=== PATIENT | male | born 1955 | race Caucasian/White ===

== ENCOUNTER 2019-11-01 13:41 | Emergency (ER) | payer MEDICAID ==
--- NOTE | 2019-11-01 14:06 | EDM.PDOC ---
ED HPI GENERAL MEDICAL PROBLEM - General Chief Complaint: ENT Problem Stated Complaint: NOSE BLEED Time Seen by Provider: 11/01/19 14:05 Source of Information: Reports: Patient History Limitations: Reports: No Limitations - History of Present Illness INITIAL COMMENTS - FREE TEXT/NARRATIVE: 64-year-old male with onset of left-sided nosebleed on of this last week. He states it lasted for a brief period of time and then resolved. He had no more problems until the following morning when he did have another nosebleed from the left nostril that once again stopped after a short period of time. He had no problems yesterday and then on today at 7 AM after awakening at 6:30 AM, he developed left-sided nosebleed and they could not get it to stop. That they did not apply direct pressure to the area they applied pressure to the bony part of the nose and held his head up when the patient arrived here apparently was still having some nosebleed and the nursing staff had the patient apply direct pressure with a gauze and by the time I get into the room his nose is not bleeding anymore. He is on no anticoagulation other than an aspirin daily. He has had no trauma to the area. He has had no weakness or dizziness. No headaches. No nausea or vomiting. The pain at present. He rates his pain as a 0/ 10. There are no other associated signs or symptoms. There are no other modifying factors. 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 The patient and his are comfortable with this arrangement and I feel that the history that I obtained from the patient and the information that I disseminated to the and the patient was well understood. 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 Social & Family History - Tobacco Use Smoking Status *Q: Former Smoker (Nonsmoker for the past 1-1/2 years.) - Alcohol Use Alcohol Use History: No - Living Situation & Occupation Living situation: Reports: Occupation: Disabled Social History Comment: He is here with his ED ROS ENT - Review of Systems Review Of Systems: See Below Constitutional: Reports: No Symptoms HEENT: Reports: Nosebleed (Left nostril) Respiratory: Reports: No Symptoms Cardiovascular: Reports: No Symptoms GI/Abdominal: Reports: No Symptoms : Reports: No Symptoms Musculoskeletal: Reports: No Symptoms Skin: Reports: No Symptoms Neurological: Reports: No Symptoms Hematologic/Lymphatic: Reports: No Symptoms Immunologic: Reports: No Symptoms ED EXAM, ENT - Physical Exam Exam: See Below Exam Limited By: No Limitations General Appearance: Alert, WD/WN, No Apparent Distress Eye Exam: Bilateral Eye: EOMI, Normal Inspection Ears: Normal External Exam, Hearing Grossly Normal Nose: Dried Blood, Other (Clots in the left nostril). No: Active Bleeding Mouth/Throat: Normal Inspection, Normal Oropharynx, Other (No posterior pharyngeal bleeding.) Head: Atraumatic, Normocephalic Neck: Normal Inspection, Supple, Non-Tender, Full Range of Motion Respiratory/Chest: Lungs Clear, Normal Breath Sounds, No Accessory Muscle Use Cardiovascular: Normal Peripheral Pulses, Regular Rate, Rhythm, No JVD, No Murmur GI/Abdominal: Normal Bowel Sounds, Soft, Non-Tender, No Mass Back: Normal Inspection Extremities: Normal Inspection, Normal Range of Motion, Non-Tender, No Pedal Edema, Normal Capillary Refill Neurological: Alert, Oriented, CN II-XII Intact, Normal Cognition, Other (Right hemiparesis which is greater in the upper extremity versus the lower extremity and this is chronic.) Skin: Warm, Dry, Intact, Normal Color, No Rash ED ENT PROCEDURES - Epistaxis Procedure Indication: Epistaxis, Controlled Recent anticoagulants/antiplatlets: No Uncontrolled HTN: No Recent septal/nasal surgery: No Site of bleeding: Left Nare Clearing of clots: Patient Blew Nose Topical Meds: Other (Afrin nasal spray) Ice pack to area: No Anterior Packing: Other (Patient had a nasal clamp placed for any minutes after instillation of Afrin nasal spray to the left nostril. Following this, an exam of the left nostril with a nasal speculum failed to show a definite bleeding site. Normal saline was sprayed into the left nostril at this time. The patient tolerated this well and there were no apparent complications.) Complications: No Course - Vital Signs Last Recorded V/S: Last Vital Signs Temp 36.4 C 11/01/19 14:30 Pulse 64 11/01/19 14:30 Resp 18 11/01/19 14:30 BP 122/60 11/01/19 14:30 Pulse Ox 100 11/01/19 14:30 - Orders/Labs/Meds Labs: Laboratory Tests 11/01/19 11/01/19 11/01/19 Range/Units 14:40 14:40 14:40 WBC 5.6 (4.5-12.0) X10-3/uL RBC 4.62 (4.30-5.75) x10(6)uL Hgb 13.1 L (13.5-17.8) g/dL Hct 37.9 (30.0-51.3) % MCV 82.0 (80-96) fL MCH 28.3 (27.7-33.6) pg MCHC 34.6 (32.2-35.4) g/dL RDW 12.4 (11.5-15.5) % Plt Count 178 (125-369) X10(3)uL MPV 8.2 (7.4-10.4) fL Neut % (Auto) 53.4 (46-82) % Lymph % (Auto) 36.7 (13-37) % [place] % (Auto) 6.8 (4-12) % Eos % (Auto) 3 (1.0-5.0) % Baso % (Auto) 1 (0-2) % Neut # (Auto) 3.1 (1.6-8.3) # Lymph # (Auto) 2.0 (0.6-5.0) # [place] # (Auto) 0.4 (0.0-1.3) # Eos # (Auto) 0.1 (0.0-0.8) # Baso # (Auto) 0.0 (0.0-0.2) # PT 10.3 (8.7-11.1) INR 1.06 (0.89-1.13) APTT 25.0 (24.4-33.2) SECONDS Sodium 144 (135-145) mmol/L Potassium 4.0 (3.5-5.3) mmol/L Chloride 105 (100-110) mmol/L Carbon Dioxide 25 (21-32) mmol/L BUN 20 H (7-18) mg/dL Creatinine 0.9 (0.70-1.30) mg/dL Est Cr Clr Drug Dosing TNP Estimated GFR (MDRD) > 60 (>60) BUN/Creatinine Ratio 22.2 H (9-20) Glucose 96 (80-116) mg/dL Calcium 8.9 (8.6-10.2) mg/dL Total Bilirubin 0.4 (0.1-1.3) mg/dL AST 20 (5-25) IU/L ALT 31 (12-36) U/L Alkaline Phosphatase 48 L (56-112) IU/L Total Protein 6.8 (6.0-8.0) g/dL Albumin 4.0 (3.2-4.6) g/dL Globulin 2.8 g/dL Albumin/Globulin Ratio 1.4 Meds: Medications Discontinued Medications Generic Name Dose Route Start Last Admin Trade Name Zainab PRN Reason Stop Dose Admin Oxymetazoline HCl 1 ml 11/01/19 14:28 Afrin Original 0.05% Nasal Tripp NIKI 11/01/19 14:29 ONETIME ONE - Re-Assessments/Exams Free Text/Narrative Re-Assessment/Exam: 11/01/19 15:45: Patient is awake, alert and appropriate. There is no active bleeding. No posterior pharyngeal blood. His lab test are all reassuring. His blood pressure is in the normal range. I have discussed at length with the patient's the procedure for controlling nosebleed and also the need for her to get saline nasal spray and have him apply that to his nostrils every 3-4 hours while he is awake. I have also encouraged her to get a humidifier. I have also told her to apply Vaseline to his nostrils at bedtime. She is to have him follow-up with his primary provider this next week as he may need ENT referral. He appears to be stable for discharge at this point. The and the patient are in agreement with the plans for discharge Departure - Departure Time of Disposition: 15:55 Disposition: Home, Self-Care 01 Condition: Good Clinical Impression: Epistaxis - Discharge Information Instructions: Nosebleed, [id number] Referrals: PCP,None [Primary Care Provider] - Forms: ED Department Discharge Additional Instructions: Your blood tests were all reassuringly normal. I did not find any bleeding site in your left nostril. You had no active bleeding to her treatment here in the emergency department. If there is further bleeding, you should instill the oral spray into the nostril were the blood is coming and had him gently clear the clots out of the nostril and then apply some more Afrin nasal spray to that nostril and then apply the nasal clamp for 30 minutes. If the bleeding is not controlled after this 30 minutes or if this fails to control it initially, you should bring him back to the emergency department for reevaluation. Rest. No strenuous activity or exercise for the next 5 days. Apply saline nasal spray to both nostrils for 3-4 hours while awake. Get a humidifier for your house. Apply Vaseline to both nostrils at bedtime. Back to the emergency department for uncontrolled bleeding, trouble breathing, vomiting, headache, weakness or dizziness or any other concerning sign or symptom. Sepsis Event Note - Focused Exam Vital Signs: Vital Signs Temp Pulse Resp BP Pulse Ox 11/01/19 14:30 36.4 C 64 18 122/60 100 Date Exam was Performed: 11/01/19 Time Exam was Performed: 15:50
[2019-11-01] MEDS ORDERED: Oxymetazoline 0.05% Nasal Spray 15 ML Bottle NAS ONE (14:28)
== END 2019-11-01 16:09 | disposition home or self-care (01) ==
LOC: FB.ED 13:41
DX: R04.0 Epistaxis (principal); I10 Essential (primary) hypertension; E11.9 Type 2 diabetes mellitus without complications; Z87.891 Personal history of nicotine dependence
CPT/HCPCS: 36415; 80053; 85025; 85610; 85730; 99283; A9270

== ENCOUNTER 2019-11-06 23:04 | Emergency (ER) | payer MEDICAID ==
--- NOTE | 2019-11-07 00:38 | EDM.PDOC ---
ED HPI GENERAL MEDICAL PROBLEM - General Chief Complaint: ENT Problem Stated Complaint: nose bleed Time Seen by Provider: 11/06/19 23:10 Source of Information: Reports: Patient History Limitations: Reports: No Limitations - History of Present Illness INITIAL COMMENTS - FREE TEXT/NARRATIVE: was seen on saturday for nose bleed, was controlled then, then today re-occured states he is not on aspirin , or any blood thinner BP not elevated has nose bleed form both nostrils , worse on the left side Onset: Today Onset Date: 11/06/19 Duration: Getting Worse Location: Reports: Face - Related Data Allergies Allergy/AdvReac Type Severity Reaction Status Date / Time No Known Allergies Allergy Verified 11/01/19 14:10 Home Meds: Home Meds .Vitamin D 1 tab PO ASDIRECTED 11/07/19 [History] Multivitamins/Min/Ca/FA/Iron [Thera-M] 1 tab PO DAILY 11/07/19 [History] Oseltamivir Phosphate 75 mg PO DAILY 11/07/19 [History] amLODIPine Besylate [Amlodipine Besylate] 10 mg PO DAILY 11/07/19 [History] atorvaSTATin [Lipitor] 40 mg PO DAILY 11/07/19 [History] lisinopriL [Lisinopril] 20 mg PO DAILY 11/07/19 [History] metFORMIN HCl [Metformin HCl] 1,000 mg PO BID 11/07/19 [History] Past Medical History Cardiovascular History: Reports: High Cholesterol, Hypertension Neurological History: Reports: CVA Endocrine/Metabolic History: Reports: Diabetes, Type II (On oral agents only) - Past Surgical History Other Surgical History Comment: No previous surgeries. Social & Family History - Family History Family Medical History: Noncontributory - Caffeine Use Caffeine Use: Reports: None - Living Situation & Occupation Living situation: Reports: Occupation: Disabled ED ROS ENT - Review of Systems Review Of Systems: Comprehensive ROS is negative, except as noted in HPI. ED EXAM, ENT - Physical Exam Exam: See Below Exam Limited By: No Limitations General Appearance: Alert, WD/WN, No Apparent Distress Eye Exam: Bilateral Eye: EOMI Ears: Normal TMs Nose: Active Bleeding (post nose bleed wose on the left side) Mouth/Throat: Normal Inspection Head: Atraumatic, Normocephalic Neck: Normal Inspection, Supple, Non-Tender Respiratory/Chest: Lungs Clear, Normal Breath Sounds Cardiovascular: Normal Peripheral Pulses, Regular Rate, Rhythm Neurological: Alert, Oriented, Abnormal Gait, Other (residual CVA effect on gati ) Psychiatric: Normal Affect, Normal Mood ED ENT PROCEDURES - Epistaxis Procedure Indication: Epistaxis Recent anticoagulants/antiplatlets: No Uncontrolled HTN: No Recent septal/nasal surgery: No Site of bleeding: Left Nare, Posterior Clearing of clots: Patient Blew Nose Topical Meds: Phenylephrine Ice pack to area: No Anterior Packing: Petrolatum Guaze Strip (on th eright side), Other ( rhinorocket was inserted into the left nostril , inflated with 7cc of air pt tolerated well. Left nostril packed with gauze smeared with vaseline) Complications: No Course - Vital Signs Last Recorded V/S: Last Vital Signs Temp 35.7 C L 11/06/19 23:10 Pulse 66 11/06/19 23:10 Resp 18 11/06/19 23:10 BP 137/78 11/06/19 23:10 Pulse Ox 97 11/06/19 23:10 Departure - Departure Time of Disposition: 00:40 Disposition: Home, Self-Care 01 Condition: Fair Clinical Impression: Epistaxis, recurrent, Acute posterior epistaxis - Discharge Information *PRESCRIPTION DRUG MONITORING PROGRAM REVIEWED*: Not Applicable *COPY OF PRESCRIPTION DRUG MONITORING REPORT IN PATIENT LEONEL: Not Applicable Instructions: Nosebleed, [id number], Nosebleed, Adult Referrals: PCP,None [Primary Care Provider] - Additional Instructions: Remove nasal packing in 2 days Sepsis Event Note - Focused Exam Vital Signs: Vital Signs Temp Pulse Resp BP Pulse Ox 11/06/19 23:10 35.7 C L 66 18 137/78 97 Date Exam was Performed: 11/07/19 Time Exam was Performed: 00:32
== END 2019-11-07 00:50 | disposition home or self-care (01) ==
LOC: FB.ED 23:04
DX: R04.0 Epistaxis (principal); E78.00 Pure hypercholesterolemia, unspecified; E11.9 Type 2 diabetes mellitus without complications; I10 Essential (primary) hypertension; Z79.899 Other long term (current) drug therapy; Z79.84 Long term (current) use of oral hypoglycemic drugs; Z86.73 Personal history of transient ischemic attack (TIA), and cerebral infarction without residual deficits
CPT/HCPCS: 30901; 30903; 99283-25

== ENCOUNTER 2020-04-01 19:37 | Emergency (ER) | payer MEDICAID ==
--- NOTE | 2020-04-01 20:02 | EDM.PDOC ---
ED HPI GENERAL MEDICAL PROBLEM - General Stated Complaint: BUG BITE Time Seen by Provider: 04/01/20 19:55 Source of Information: Reports: Patient History Limitations: Reports: No Limitations - History of Present Illness INITIAL COMMENTS - FREE TEXT/NARRATIVE: 64-year-old male who reports approximately 4-5 hours ago he noted swelling just in front of his left ear and along his jaw. He reports that there was really no pain associated with this. It just felt more swollen than the other side. He reports that his pain as 0/10. He has had no fevers. He has had no nausea or vomiting. He has had no trouble swallowing. He's had no trouble breathing. Able to eat and drink normally. There has been no trauma to the area. His gave him Tylenol and had him apply an ice pack to the area and they both feel that the swelling has decreased. No swelling anywhere else. He feels that his taste is normal There are no other associated signs or symptoms. There are no other modifying factors. Onset: Today Duration: Improving Location: Reports: Face (Left cheek in the pre-auricular area and along the angle of the jaw.) Quality: Reports: Other (Fullness. 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 - Related Data Allergies Allergy/AdvReac Type Severity Reaction Status Date / Time No Known Allergies Allergy Verified 11/07/19 01:59 Home Meds: Home Meds .Vitamin D 1 tab PO ASDIRECTED 11/07/19 [History] Multivitamins/Min/Ca/FA/Iron [Thera-M] 1 tab PO DAILY 11/07/19 [History] amLODIPine Besylate [Amlodipine Besylate] 10 mg PO DAILY 11/07/19 [History] atorvaSTATin [Lipitor] 40 mg PO DAILY 11/07/19 [History] lisinopriL [Lisinopril] 20 mg PO DAILY 11/07/19 [History] metFORMIN HCl [Metformin HCl] 1,000 mg PO BID 11/07/19 [History] cephALEXin [Keflex] 500 mg PO QID 7 Days #28 capsule 04/01/20 [Rx] Past Medical History Cardiovascular History: Reports: High Cholesterol, Hypertension Neurological History: Reports: CVA Other Neuro History: Hemorrhagic CVA, 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 Endocrine/Metabolic History: Reports: Diabetes, Type II (On oral agents only) - Past Surgical History Other Surgical History Comment: No previous surgeries. Social & Family History - Tobacco Use Smoking Status *Q: Unknown Ever Smoked (Currently a nonsmoker.) - Caffeine Use Caffeine Use: Reports: None - Alcohol Use Alcohol Use History: No - Living Situation & Occupation Living situation: Reports: Occupation: Disabled Social History Comment: He is here with his . ED ROS GENERAL - Review of Systems Review Of Systems: See Below Constitutional: Reports: No Symptoms HEENT: Reports: Other (Swelling in left preauricular area.) Respiratory: Reports: No Symptoms Cardiovascular: Reports: No Symptoms GI/Abdominal: Reports: No Symptoms : Reports: No Symptoms Musculoskeletal: Reports: No Symptoms Skin: Reports: No Symptoms Neurological: Reports: No Symptoms Hematologic/Lymphatic: Reports: No Symptoms Immunologic: Reports: No Symptoms ED EXAM, SKIN/RASH Exam: See Below Exam Limited By: No Limitations General Appearance: Alert, WD/WN, No Apparent Distress Eye Exam: Bilateral Eye: EOMI, Normal Inspection Ears: Normal External Exam, Hearing Grossly Normal Nose: Normal Inspection, Normal Mucosa, No Blood Throat/Mouth: Normal Inspection, Normal Oropharynx, Normal Voice, No Airway Compromise Head: Facial Swelling (In the left preauricular area along the angle of the mandible which appears to be the parotid gland.) Neck: Supple, Non-Tender, Full Range of Motion, Other (The swelling extends a little bit below the angle of the mandible on the left.). No: Lymphadenopathy (R), Lymphadenopathy (L) Cardiovascular: Normal Peripheral Pulses, Regular Rate, Rhythm, No Murmur Peripheral Pulses: 2+: Radial (L), Radial (R) GI/Abdominal: Normal Bowel Sounds, Soft, Non-Tender Back Exam: Normal Inspection, Full Range of Motion Extremities: Normal Inspection, Normal Range of Motion, Non-Tender, No Pedal Edema, Normal Capillary Refill Neurological: Alert, Oriented, Sensory/Motor Deficit (Right facial droop and right hemiparesis which are both chronic following his hemorrhagic stroke.) Psychiatric: Normal Affect Skin: Warm, Dry, Intact, Normal Color, No Rash Location, Skin: Face Characteristics: Other (No rash. No redness. Only swelling.) Associated features: Swelling (But no fluctuant area.). No: Warmth, Tenderness Course - Vital Signs Last Recorded V/S: Last Vital Signs Temp 36.4 C 04/01/20 19:37 Pulse 64 04/01/20 19:37 Resp 17 04/01/20 19:37 BP 128/63 04/01/20 19:37 Pulse Ox 99 04/01/20 19:37 - Orders/Labs/Meds Meds: Medications Discontinued Medications Generic Name Dose Route Start Last Admin Trade Name Zainab PRN Reason Stop Dose Admin Cephalexin 500 mg 04/01/20 20:17 04/01/20 20:32 Keflex PO 04/01/20 20:18 500 mg ONETIME ONE Administration - Re-Assessments/Exams Free Text/Narrative Re-Assessment/Exam: 04/01/20 20:12: Patient with left parotitis. He appears nontoxic. I will place the patient on Keflex for 7 days and have the patient use sialagogues. He is to increase his fluid intake. Precautions and reasons for return to the emergency department were discussed with the patient and with his in the emergency department and were detailed in the discharge instructions. Departure - Departure Time of Disposition: 20:18 Disposition: Home, Self-Care 01 Clinical Impression: Parotitis, acute - Discharge Information Prescriptions: cephALEXin [Keflex] 500 mg PO QID 7 Days #28 capsule Instructions: Parotitis, [id number] Referrals: PCP,None [Primary Care Provider] - Forms: ED Department Discharge Additional Instructions: You have an infection of your left parotid gland or salivary gland. It produces most of the saliva or your mouth. The swelling that you have in this area since inflammation or infection from this gland. It could also represent a stone in the duct that delivers saliva from the gland to your mouth. This should improve over time. I am placing you on a course of antibiotics to treat for the potential infection (Keflex). You should also increase your fluid intake. You should also use sour candies to increase your saliva production. You may also give him Tylenol 1000 mg by mouth every 6 hours as needed. You may also apply ice packs or warm compresses to the area for comfort and support. Follow-up with your primary doctor as needed. Back to the emergency department for increased swelling, trouble swallowing, fever, vomiting or any other concerning sign or symptom. Sepsis Event Note (ED) - Focused Exam Vital Signs: Vital Signs Temp Pulse Resp BP Pulse Ox 04/01/20 19:37 36.4 C 64 17 128/63 99
[2020-04-01] MEDS ORDERED: Cephalexin 500 MG Cap PO ONE (20:17)
== END 2020-04-01 20:30 | disposition home or self-care (01) ==
LOC: FB.ED 19:37
DX: K11.20 Sialoadenitis, unspecified (principal); I69.351 Hemiplegia and hemiparesis following cerebral infarction affecting right dominant side; I10 Essential (primary) hypertension; E78.00 Pure hypercholesterolemia, unspecified; E11.9 Type 2 diabetes mellitus without complications; Z79.899 Other long term (current) drug therapy; Z79.84 Long term (current) use of oral hypoglycemic drugs
CPT/HCPCS: 99283; A9270-GY